=== PATIENT | female | born 1990 | race Caucasian/White ===

== ENCOUNTER 2020-04-22 12:15 | Emergency (ER) | payer OTHER ==
[2020-04-22] MEDS ORDERED: METOCLOPRAMIDE HCL INJ/PF 10 MG/2 ML SDV IV ONE (12:31)
[2020-04-22] MEDS ORDERED: NORMAL SALINE 1000 ML 1,000 ML IV PRN (12:31)
--- NOTE | 2020-04-22 12:33 | ER Document Report ---
ED Medical Screen (RME) - General Chief Complaint: Nausea/Vomiting Stated Complaint: NAUSEA,VOMITING Time Seen by Provider: 04/22/20 12:28 Mode of Arrival: Ambulatory Information source: Patient Notes: This is a 30-year-old female presents to the emergency room today with nausea vomiting she is 6 weeks she has no bleeding no spotting no cramping however she has not followed up with an [employer]OR [employer] as of yet either. - Related Data Allergies/Adverse Reactions: No Known Allergies Allergy (Unverified 04/22/20 12:30) Past Medical History - Social History Chew tobacco use (# tins/day): No Frequency of alcohol use: None Drug Abuse: None Physical Exam - Vital signs Vitals: Temp Pulse Resp BP Pulse Ox 98.6 F 96 16 132/91 H 100 04/22/20 12:20 04/22/20 12:20 04/22/20 12:20 04/22/20 12:20 04/22/20 12:20 Course - Vital Signs Vital signs: Temp Pulse Resp BP Pulse Ox 98.6 F 96 16 132/91 H 100 04/22/20 12:27 04/22/20 12:20 04/22/20 12:20 04/22/20 12:20 04/22/20 12:20
[2020-04-22 13:02] LABS: ABSOLUTE LYMPHOCYTES (AUTO) 1.1 10^3/uL (0.5-4.7); ABSOLUTE MONOCYTES (AUTO) 0.5 10^3/uL (0.1-1.4); ABSOLUTE NEUT (AUTO) 1.6 10^3/uL (1.7-8.2); BASOPHILS % (AUTO) 0.5 % (0-2); EOSINOPHILS % (AUTO) 0.2 % (0-6); HEMATOCRIT 42.4 % (36.0-47.0); HEMOGLOBIN 14.5 g/dL (12.0-15.5); LYMPHOCYTES % (AUTO) 33.8 % (13-45); MEAN CORPUSCULAR HEMOGLOBIN 31.4 pg (27.0-33.4); MEAN CORPUSCULAR HGB CONC 34.1 g/dL (32.0-36.0); MEAN CORPUSCULAR VOLUME 92 fl (80-97); MONOCYTES % (AUTO) 15.9 % (3-13); PLATELET COUNT 243 10^3/uL (150-450); RED BLOOD COUNT 4.61 10^6/uL (3.72-5.28); RED CELL DISTRIBUTION WIDTH 12.2 % (11.5-14.0); SEGMENTED NEUTROPHILS % (AUTO) 49.6 % (42-78); TOTAL CELLS COUNTED % (AUTO) 100 %; WHITE BLOOD COUNT 3.3 10^3/uL (4.0-10.5)
[2020-04-22 13:13] LABS: APPEARANCE,URINE SLIGHTLY-CLOUDY; BILIRUBIN,URINE NEGATIVE (NEGATIVE); COLOR,URINE YELLOW; GLUCOSE, URINE NEGATIVE (NEGATIVE); KETONES,URINE 80 mg/dL (NEGATIVE); LEUKOCYTE ESTERASE,URINE NEGATIVE (NEGATIVE); NITRITE,URINE NEGATIVE (NEGATIVE); PROTEIN,URINE 30 mg/dL (NEGATIVE); URINE SPECIFIC GRAVITY 1.029
[2020-04-22 13:27] LABS: ALBUMIN 4.9 g/dL (3.5-5.0); ALKALINE PHOSPHATASE 53 U/L (38-126); ANION GAP 12 (5-19); ASPARTATE AMINO TRANSFERASE 21 U/L (14-36); BILIRUBIN,TOTAL 0.7 mg/dL (0.2-1.3); BLOOD UREA NITROGEN 11 mg/dL (7-20); CALCIUM 9.5 mg/dL (8.4-10.2); CARBON DIOXIDE 21 mmol/L (22-30); CHLORIDE 100 mmol/L (98-107); GLUCOSE 89 mg/dL (75-110); POTASSIUM 4.3 mmol/L (3.6-5.0); TOTAL PROTEIN 8.2 g/dL (6.3-8.2)
--- NOTE | 2020-04-22 14:29 | RADIOLOGY REPORT (SQ) ---
EXAM DESCRIPTION: U/S OB TRANSVAGINAL W/O DOP IMAGES COMPLETED DATE/TIME: 04/22/2020 2:06 pm REASON FOR STUDY: pain COMPARISON: None. TECHNIQUE: Transvaginal static and realtime grayscale images acquired of the pelvis. Additional pippa cted spectral and color Doppler images recorded. All images stored on PACs. bHCG: Pending. CLINICAL DATES: 6 weeks 3 days LIMITATIONS: None. FINDINGS: FETUS: Single Living intrauterine . ULTRASOUND EGA: 7 weeks 1 day EFW: Not applicable less than 20 weeks. CRL: 1.1 cm FHR: 125 beats per minute. SURVEY: Too early to assess. AMNIOTIC FLUID: Adequate amount. PLACENTA: Not yet developed due to early gestation. SUBCHORIONIC BLEED: No. SIZE OF BLEED: Not applicable. UTERUS: No masses. No anomalies. CERVICAL LENGTH: 3 cm Closed. RIGHT ADNEXA: Normal ovary with normal vascular flow. No adnexal free fluid. No adnexal masses. LEFT ADNEXA: Normal ovary with normal vascular flow. Trace/small amount adnexal free fluid. No adnexal masses. OTHER: No other significant finding. IMPRESSION: Single live intrauterine . EGA 7 weeks 1 day Trimester of : First trimester - 0 to 13 weeks. TECHNICAL DOCUMENTATION: JOB ID: [id number] [employer]- All Rights Reserved rev Reading location - IP/workstation name: [email or web address]
[2020-04-22] MEDS ORDERED: METOCLOPRAMIDE HCL 10 MG TABLET PO ONE (14:45)
--- NOTE | 2020-04-22 14:46 | ER Document Report ---
ED General - General Chief Complaint: Nausea/Vomiting Stated Complaint: NAUSEA,VOMITING Time Seen by Provider: 04/22/20 12:28 Mode of Arrival: Ambulatory Notes: Patient is a 30-year-old white female with no significant past medical history who presents to the emergency department with a chief complaint of nausea and v omiting. She states that she is about 6 weeks , G1, P0. She has not seen OB yet, has an upcoming appointment in May. She states over the past week she has had increased nausea throughout the day. No specific pattern. She states she is tried to eat smaller meals, eat ice chips and take small sips of water, can occasionally hold it down but frequently gets very nauseous and vomits. She was concerned being her first and that she might be dehydrating so she came for evaluation. She denies any abdominal pain or vaginal bleeding or discharge. Denies any urinary complaints. She admits to some mild lower back pain in conjunction with the . - Related Data Allergies/Adverse Reactions: No Known Allergies Allergy (Unverified 04/22/20 12:30) Past Medical History - General Information source: Patient - Social History Smoking Status: Never Smoker Chew tobacco use (# tins/day): No Frequency of alcohol use: None Drug Abuse: None Family History: Reviewed & Not Pertinent Review of Systems - Review of Systems Constitutional: denies: Fever EENT: denies: Throat pain Cardiovascular: denies: Chest pain Respiratory: denies: Short of breath Gastrointestinal: Nausea, Vomiting. denies: Abdominal pain Genitourinary: denies: Burning, Dysuria Female Genitourinary: . denies: Vaginal discharge, Vaginal bleeding Musculoskeletal: Back pain Skin: denies: Change in color, Rash Hematologic/Lymphatic: denies: Easy bleeding Neurological/Psychological: denies: Headaches Physical Exam - Vital signs Vitals: Temp Pulse Resp BP Pulse Ox 98.6 F 96 16 132/91 H 100 04/22/20 12:20 04/22/20 12:20 04/22/20 12:20 04/22/20 12:20 04/22/20 12:20 - General General appearance: Appears well, Alert In distress: None - HEENT Head: Normocephalic, Atraumatic Eyes: Normal Conjunctiva: Normal Extraocular movements intact: Yes Pupils: PERRL Ears: Normal Mouth/Lips: Normal Mucous membranes: Other - Tongue is slightly dry otherwise the oropharynx is mostly moist in regards to the mucous membranes Pharynx: Normal Neck: Normal, Supple - Respiratory Respiratory status: No respiratory distress Chest status: Nontender Breath sounds: Normal Chest palpation: Normal - Cardiovascular Rhythm: Regular Heart sounds: Normal auscultation - Abdominal Inspection: Normal Distension: No distension Bowel sounds: Normal Tenderness: Nontender Organomegaly: No organomegaly - Back Back: No: CVA tenderness - Neurological Neuro grossly intact: Yes Cognition: Normal Orientation: AAOx4 - Psychological Associated symptoms: Normal affect, Normal mood - Skin Skin Temperature: Warm Skin Moisture: Dry Skin Color: Normal Course - Re-evaluation Re-evalutation: 04/22/20 14:45 Patient's urinalysis with evidence of mild UTI, given that she is we will treat. Will trial p.o. Reglan and p.o. fluids at patient's preference first. If she cannot tolerate will trial IV medications and fluids and monitor. If she tolerates oral intake well we will plan to send her home with Reglan. We discussed changes in dietary habits to assist with the nausea. 04/22/20 16:03 Patient tolerating oral intake well with the Reglan and p.o. fluids. She states her nausea is improved, she is hungry and wishes to be discharged to go eat and drink. I advised she take it slowly and carefully. Discussed again dietary changes and to take her prenatals at night before bed to help assist with some of the possible side effects causing more nausea and upset stomach. We will start her on Macrobid for UTI. Will be sent home with a prescription for Reglan as well. 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 She verbalized understood and agreed. - Vital Signs Vital signs: Temp Pulse Resp BP Pulse Ox 98.6 F 96 16 132/91 H 100 04/22/20 12:27 04/22/20 12:20 04/22/20 12:20 04/22/20 12:20 04/22/20 12:20 - Laboratory Result Diagrams: 04/22/20 12:50 04/22/20 12:50 Laboratory results interpreted by me: 04/22/20 04/22/20 04/22/20 12:50 12:50 12:50 WBC 3.3 L Crisp % (Auto) 15.9 H Absolute Neuts (auto) 1.6 L Sodium 133.2 L Carbon Dioxide 21 L Beta HCG, Quant 76143.00 H Urine Protein 30 H Urine Ketones 80 H Urine Urobilinogen 2.0 H Discharge - Discharge Clinical Impression: 7 weeks gestation of , Nausea/vomiting in Condition: Stable Disposition: HOME, SELF-CARE Instructions: Antinausea Medication ([facility]), ([facility]) Additional Instructions: Follow-up with your regular doctor in 2 to 3 days for reevaluation. Return here or any ER immediately with any new, persistent or worsening symptoms. Prescriptions: Nitrofurantoin Monohyd/M-Cryst [Macrobid 100 mg Capsule] 100 mg PO BID #10 cap Metoclopramide HCl [Reglan 10 mg Tablet] 10 mg PO Q6 PRN #90 tablet PRN Reason:
[2020-04-22 16:27] VITALS: BP 112/85
== END 2020-04-22 16:26 | disposition home or self-care (01) ==
LOC: ER 12:15
DX: O21.9 Vomiting of pregnancy, unspecified (principal); O23.41 Unspecified infection of urinary tract in pregnancy, first trimester; M54.5 Low back pain; Z3A.01 Less than 8 weeks gestation of pregnancy
CPT/HCPCS: 36415; 76817; 80053; 81001; 84702; 85025; 99284